=== PATIENT | female | born 2000 ===

== ENCOUNTER 2022-06-08 22:48 | Inpatient (IN) | payer BC ==
[2022-06-09] MEDS ORDERED: Sodium Chloride 0.9% 20 ML SDV IV PRN (00:16)
[2022-06-09] MEDS ORDERED: Methylergonovine 0.2 MG/1 ML Amp IM PRN ×2 (00:16→08:19)
[2022-06-09] MEDS ORDERED: Water For Irrigation,Sterile 1,000 ML Container IRR PRN (00:16)
[2022-06-09] MEDS ORDERED: Butorphanol 1 MG/ML SDV IVPUSH PRN (00:16)
[2022-06-09] MEDS ORDERED: Sodium Chloride 0.9% 2.5 ML Syringe FLUSH PRN (00:16)
[2022-06-09] MEDS ORDERED: Carboprost Tromethamine 250 MCG/1 ML Amp IM PRN (00:16)
[2022-06-09] MEDS ORDERED: Misoprostol 200 MCG Tab PO PRN (00:16)
[2022-06-09] MEDS ORDERED: Sodium Chloride 0.9% 10 ML Syringe FLUSH PRN (00:16)
[2022-06-09] MEDS ORDERED: Lidocaine 1% 50 ML MDV INJECT PRN (00:16)
[2022-06-09] MEDS ORDERED: Tranexamic Acid 1,000 MG in Sodium Chloride 0.9% 100 ML IV PRN ×2 (00:16→08:19)
[2022-06-09] MEDS ORDERED: Oxytocin/0.9 % Sodium Chloride 30 UNIT/500 ML BAG IV SCH ×2 (00:30→06:00)
[2022-06-09] MEDS: Lactated Ringers 1,000 ML IV SCH ×2 (01:20→02:21)
[2022-06-09] MEDS ORDERED: Ropivacaine/PF 400 MG/200 ML PCA ONE (02:24)
[2022-06-09] MEDS ORDERED: ePHEDrine 50 MG/ML SDV IVPUSH PRN (02:37)
[2022-06-09] MEDS ORDERED: Phenylephrine HCl In 0.9% NaCl 1 MG/10 ML Vial IVPUSH SCH (02:45)
[2022-06-09] MEDS ORDERED: Ropivacaine HCl/PF 400 MG in Premix Bag 1 BAG EPIDUR SCH (02:45)
[2022-06-09] MEDS ORDERED: Ondansetron 4 MG/2 ML SDV ONE (05:06)
[2022-06-09] MEDS ORDERED: Ondansetron 4 MG/2 ML SDV IVPUSH PRN ×2 (05:43→08:47)
[2022-06-09] MEDS ORDERED: Terbutaline 1 MG/ML SDV SUBCUT PRN (05:47)
[2022-06-09] MEDS ORDERED: Dexmedetomidine 200 MCG/2 ML SDV ONE (07:39)
[2022-06-09] MEDS ORDERED: Glycopyrrolate 0.2 MG/ML SDV ONE (07:39)
[2022-06-09] MEDS ORDERED: ePHEDrine 50 MG/ML SDV ONE (07:39)
[2022-06-09] MEDS ORDERED: Dexamethasone 4 MG/ML 5 ML MDV ONE (07:39)
[2022-06-09] MEDS ORDERED: Water For Injection, Sterile 40 ML ONE (07:39)
[2022-06-09] MEDS ORDERED: Oxytocin 10 Units/1 ML SDV ONE (07:39)
[2022-06-09] MEDS ORDERED: ceFAZolin 1 GM Vial ONE (07:39)
[2022-06-09] MEDS ORDERED: Phenylephrine HCl In 0.9% NaCl 1 MG/10 ML Vial ONE (07:39)
[2022-06-09] MEDS ORDERED: Ropivacaine 0.5% 5 MG/ML 30 ML SDV ONE (07:40)
[2022-06-09] MEDS ORDERED: Azithromycin 500 MG in Sodium Chloride 0.9% 250 ML IV ONE (07:45)
[2022-06-09] MEDS ORDERED: Morphine PF 10 MG/10 ML SDV ONE (07:45)
[2022-06-09] MEDS ORDERED: Witch Hazel Medicated Pads 40/Jar TOP PRN (08:19)
[2022-06-09] MEDS ORDERED: Bisacodyl 10 MG Supp RECTAL PRN (08:19)
[2022-06-09] MEDS ORDERED: Acetaminophen 500 MG Tab PO PRN (08:19)
[2022-06-09] MEDS ORDERED: Lanolin 100% Cream 7 GM Tube TOP PRN (08:19)
[2022-06-09] MEDS ORDERED: Ibuprofen 400 MG Tab PO PRN (08:19)
[2022-06-09] MEDS ORDERED: Benzocaine/Menthol 20%-0.5% Spray 78 GM Cannister TOP PRN (08:19)
[2022-06-09] MEDS ORDERED: fentaNYL 100 MCG/2 ML SDV IVPUSH PRN (08:47)
[2022-06-09] MEDS ORDERED: Promethazine 25 MG/ML SDV IM ONE (08:47)
[2022-06-09] MEDS ORDERED: diphenhydrAMINE 50 MG/ML SDV IVPUSH PRN (08:47)
[2022-06-09] MEDS ORDERED: Naloxone 0.4 MG/ML SDV IVPUSH PRN (08:47)
[2022-06-09] MEDS ORDERED: Lidocaine 2% with EPINEPHrine 1:200,000 20 ML SDV ONE (09:07)
[2022-06-09] MEDS ORDERED: Lactated Ringers 500 ML IV ONE (10:30)
[2022-06-09] MEDS ORDERED: Nalbuphine HCl 10 MG/ 1ML Amp IVPUSH PRN (20:51)
[2022-06-09] MEDS: Docusate Sodium 100 MG Cap PO PRN (20:51)
[2022-06-09] MEDS: Ibuprofen 800 MG Tab PO PRN (23:02)
[2022-06-10] MEDS: Acetaminophen 500 MG Tab PO PRN ×3 (03:13→14:19)
[2022-06-10] MEDS: Ibuprofen 800 MG Tab PO PRN ×3 (05:34→16:53)
[2022-06-10] MEDS: Docusate Sodium 100 MG Cap PO PRN (09:51)
[2022-06-11] MEDS: Ibuprofen 800 MG Tab PO PRN ×2 (01:25→07:48)
[2022-06-11] MEDS: Acetaminophen/oxyCODONE 325-5 MG Tab PO PRN ×3 (01:27→11:09)
== END 2022-06-11 12:30 | disposition home or self-care (01) | DRG 540 ==
LOC: MW.OB 22:48 → MW.OBCHECK 22:48 → MW.OB 06-09 00:17 → MW.OBCHECK 06-09 00:17 → OBSVTOIN 06-09 07:29 → MW.OB 06-09 16:06
PROVIDERS: ADMIT Obstetrics & Gynecology; ATTEND Obstetrics & Gynecology
PROC: 10D00Z1 Extraction of Products of Conception, Low, Open Approach (ICD-10-PCS; principal; 2022-06-09)
PROC: 10D17Z9 Manual Extraction of Products of Conception, Retained, Via Natural or Artificial Opening (ICD-10-PCS; 2022-06-09)
DX: O48.0 Post-term pregnancy (principal); O76 Abnormality in fetal heart rate and rhythm complicating labor and delivery; Z3A.40 40 weeks gestation of pregnancy; Z37.0 Single live birth; Z20.822 Contact with and (suspected) exposure to COVID-19; Z98.891 History of uterine scar from previous surgery
CPT/HCPCS: 01967; 01968; 36415; 59025; 64488; 74018; 74018-26; 82803; 85014; 85018; 85027; 86592; 86850; 86900; 86901; A9270-GY; J0595; J0690; J1100; J2274; J2590; J2795; J3490; J7120; U0002